=== PATIENT | male | born 1980 | race Caucasian/White ===

== ENCOUNTER → 2020-06-07 | Outpatient (CLI) | payer BC ==
[~2020-06-07] MED LIST: PREDNISONE10 MG PO
== END | disposition home or self-care (01) ==
LOC: COVID19 08:38
PROVIDERS: ATTEND Internal Medicine Nephrology
DX: Z20.828 Contact with and (suspected) exposure to other viral communicable diseases (principal)

== ENCOUNTER 2021-10-15 08:39 | Emergency (ER) | payer BC ==
[~2021-10-15] VITALS: Ht 182.8 cm; Wt 93.9 kg
[2021-10-15] MEDS ORDERED: CYCLOBENZAPRINE5 M3 PO (09:15)
[2021-10-15] MEDS ORDERED: PREDNISONE50 MG PO (09:15)
== END 2021-10-15 09:22 | disposition home or self-care (01) ==
LOC: ED 08:39
DX: S39.012A Strain of muscle, fascia and tendon of lower back, initial encounter (principal); Z91.030 Bee allergy status; Z98.890 Other specified postprocedural states; X50.1XXA Overexertion from prolonged static or awkward postures, initial encounter; Y93.89 Activity, other specified; Y92.89 Other specified places as the place of occurrence of the external cause; Y99.8 Other external cause status

== ENCOUNTER 2022-04-09 18:20 | Emergency (ER) | payer OTHER ==
[~2022-04-09] VITALS: Ht 182.8 cm; Wt 90.7 kg
[~2022-04-09 18:20] MED LIST changes: +CYCLOBENZAPRINE5 M3 PO; +PREDNISONE50 MG PO
[2022-04-09 19:14] LABS: BASO # 0.1 10*3/uL (0.0-0.1); BASO % 0.4 % (0.0-1.0); EOS % 0.3 % (1.0-4.0); HEMATOCRIT 43.2 % (42.0-52.0); LYMPH % 8.3 % (27.0-41.0); MEAN CELL VOLUME 86.2 fl (80.0-94.0); MEAN CORPUSCULAR HGB 30.5 pg (27.0-31.0); MEAN CORPUSCULAR HGB CONC 35.4 g/dl (33.0-37.0); MEAN PLATELET VOLUME 10.5 fl (9.6-12.3); MONO # 0.4 10*3/uL (0.1-1.0); MONO % 3.1 % (3.0-9.0); NEUT # 10.2 10*3/uL (2.3-7.9); NEUT % 87.5 % (47.0-73.0); PLATELET COUNT AUTOMATED 308 10*3/uL (130-400); RED BLOOD COUNT 5.01 10*6/uL (4.50-5.90); RED CELL DISTRI WIDTH 10.9 % (0-14.5); WHITE BLOOD COUNT 11.7 10*3/uL (4.8-10.8)
[2022-04-09 19:30] LABS: ALKALINE PHOSPHATASE 68 U/L (45-117); BUN 20 mg/dl (7-24); CHLORIDE 107 mmol/L (98-107); CREATININE 1.14 mg/dL (0.70-1.30); POTASSIUM 3.8 mmol/L (3.5-5.1); SGOT/AST 30 IU/L (3-35); SGPT/ALT 40 U/L (12-78); SODIUM 138 mmol/L (136-145); TOTAL PROTEIN 8.1 gm/dL (6.4-8.2)
== END 2022-04-09 22:31 | disposition home or self-care (01) ==
LOC: ED 18:20
PROVIDERS: Nurse Practitioner Family
DX: U07.1 COVID-19 (principal); E86.0 Dehydration; Z91.030 Bee allergy status

== ENCOUNTER 2023-05-12 14:37 | Emergency (ER) | payer OTHER ==
[~2023-05-12] VITALS: Ht 182.8 cm; Wt 90.7 kg
== END 2023-05-12 16:12 | disposition home or self-care (01) ==
LOC: ED 14:37
DX: S61.012A Laceration without foreign body of left thumb without damage to nail, initial encounter (principal); Z91.030 Bee allergy status; Z98.890 Other specified postprocedural states; W26.9XXA Contact with unspecified sharp object(s), initial encounter; Y93.89 Activity, other specified; Y92.89 Other specified places as the place of occurrence of the external cause; Y99.8 Other external cause status